=== PATIENT | male | born 1935 | race Caucasian/White ===

== ENCOUNTER 2018-12-10 06:23 | Inpatient (IN) | payer MEDICARE, BC ==
[2018-12-10 07:20] LABS: #Eosinphils 0.1 thou/uL (0.0-0.7); #Lymphocytes 0.5 thou/uL (1.20-3.40); #Neutrophils 6.4 thou/uL (1.40-6.50); %Basophils 0.1 % (0.0-1.0); %Eosinophils 0.9 % (0.0-10.0); %Lymphocytes 6.4 % (21.0-51.0); %Monocytes 12.2 % (0.0-10.0); %Neutrophils 80.6 % (42.0-75.0); Hemoglobin 11.9 g/dL (14.0-18.0); Mean Corpuscular HGB CONC 33.1 g/dL (32.0-36.0); Mean Corpuscular Hemoglobin 31.9 pg (27.0-31.0); Mean Corpuscular Volume 96.6 fL (78.0-98.0); Mean Platelet Volume 8.1 fL (7.4-10.4); Platelet Count 208 thou/uL (130-400); RBC Distribution Width 13.2 % (11.5-14.5); Red Blood Cell (RBC) Count 3.73 mill/uL (4.70-6.10); White Blood Cell (WBC) Count 7.9 thou/uL (4.8-10.8)
[2018-12-10 07:26] LABS: Bilirubin Negative (Negative); Blood, Urine Negative (Negative); Clarity CLEAR (Clear); Glucose, Urine (Dipstick) Negative (Negative); Leukocyte Small (Negative); Nitrite Negative (Negative); Protein, Urine (Dipstick) Negative (Neg-Trace); Specific Gravity, Urine 1.016 (1.002-1.036); Urobilinogen 0.2 mg/dL (0.2-1.0); pH, Urine 6.5 (5.0-9.0)
[2018-12-10 07:29] LABS: Bacteria/HPF None Seen HPF (None Seen); Hyaline Casts/LPF 0-3 HYALINE CAST LPF (0-3 Hyaline); RBC/HPF 0-3 HPF (0-3); Squamous Epithelial 0-3 HPF (0-3)
--- NOTE | 2018-12-10 07:40 | RAD ---
EXAM: Single view of the chest HISTORY: Fall with chest pain COMPARISON: 01/02/2014 FINDINGS: Single view of the chest shows a normal sized cardiomediastinal silhouette. Biapical pleura l thickening is seen. There is no evidence of consolidation, mass, or pleural effusion. The bones are unremarkable. IMPRESSION: No evidence of acute cardiopulmonary disease
[2018-12-10 07:43] LABS: ALT (SGPT) 16 U/L (8-55); AST (SGOT) 20 U/L (5-34); Alkaline Phosphatase 37 U/L (40-150); Anion Gap 11 mmol/L (10-20); BUN (Urea Nitrogen) 17 mg/dL (8.4-25.7); Bilirubin, Total 0.2 mg/dL (0.2-1.2); CK (CPK) 51 U/L (30-200); Calc. Creatinine Clearance 0 mL/min (70-130); Calcium 8.6 mg/dL (7.8-10.44); Carbon Dioxide 23 mmol/L (23-31); Chloride 112 mmol/L (98-107); Estimated GFR-MDRD Greater than 90; Globulin 2.4 g/dL (2.4-3.5); Glucose 102 mg/dL (83-110); Lipase 50 U/L (8-78); Potassium 3.7 mmol/L (3.5-5.1); Protein, Total 5.4 g/dL (5.8-8.1); Sodium 142 mmol/L (136-145)
[2018-12-10 08:00] LABS: Free T4 (Free Thyroxine) 0.86 ng/dL (0.70-1.48); Thyroid Stimulating Hormone 0.5577 uIU/mL (0.35-4.94)
--- NOTE | 2018-12-10 08:00 | RAD ---
EXAM: 2 views of the right forearm HISTORY: Forearm pain after fall COMPARISON: None FINDINGS: There is no evidence of acute fracture or dislocation. Mild diffuse soft tissue swelling is seen. No degenerative changes are seen in the wrist or elbow. IMPRESSION: No evidence of acute osseous abnormality.
--- NOTE | 2018-12-10 08:01 | RAD ---
Exam: Single view of the pelvis HISTORY: Pelvic and hip pain COMPARISON: None FINDINGS: A single view the pelvis shows irregularity along the left superior pubic ramus. This could be artifactual or represent a minimally displaced fracture. No other osseous abnormalities are seen in the bones of the pelvis. No degenerative changes seen in either hip. Moderate degenerative ch anges are seen in the lumbar spine. A catheter is seen in the urinary bladder. IMPRESSION: Questionable left superior pubic ramus fracture. A CT of the pelvis is recommended for fu rther evaluation.
--- NOTE | 2018-12-10 08:03 | CT ---
CT BRAIN WITHOUT CONTRAST: HISTORY: Head injury post fall. FINDINGS: There is some generalized ventricular and sulcal prominence. There are no signs of intracerebral hem orrhage or extraaxial fluid collection. No mass lesion or mass effect. There is a right frontal sca lp hematoma noted. No underlying fracture. The mastoid air cells are clear. There is mucosal disease within the ethmoid air cells. IMPRESSION: No acute intracranial abnormalities. POS: [facility]
[2018-12-10] MEDS ORDERED: cefTRIAXone\\ROCEPHIN 1 GM VIAL ONE (08:35)
[2018-12-10] MEDS ORDERED: Dextrose 50% Abboject 50 ML SYRINGE ONE (08:49)
--- NOTE | 2018-12-10 08:56 | CT ---
CT ABDOMEN AND PELVIS WITHOUT IV CONTRAST: Date: 12/10/18 INDICATION: Concern for history of fall; patient was found down with unwitnessed fall. There is concern for possi ble pelvic fracture. FINDINGS: Lung bases are clear. There is a small hiatal hernia. Unopacified liver, spleen, pancreas, and adrenal glands are unremarkable appearing. There are small gallstones within the gallbladder neck. There is a tiny cyst within the left kidney. No free fluid or enlarged lymph nodes are evident. There are moderate calcifications involving the abdominal aorta. There is scattered colonic diverticula. Small bowel is normal caliber. Prostate is enlarged, measuring 5.9 cm. There is a Garcia catheter in place. 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 There is diffuse osteopenia. No displaced pelvic fracture is evident. IMPRESSION: 1. No acute traumatic injury involving abdomen or pelvis. 2. No definite pelvic fracture demonstrated. 3. Cholelithiasis. 4. Left renal cyst. 5. Colonic diverticulosis. 6. Prostate enlargement. 7. 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 POS: [facility]
[2018-12-10] MEDS ORDERED: Zolpidem Tartrate 5 MG TAB PO PRN (09:02)
[2018-12-10] MEDS ORDERED: Dextrose 5% in Water 1,000 ML IV PRN (09:02)
[2018-12-10] MEDS ORDERED: Dextrose 50% Abboject 50 ML SYRINGE SLOW IVP PRN (09:02)
[2018-12-10] MEDS ORDERED: Ondansetron ODT 4 MG TAB PO PRN (09:02)
--- NOTE | 2018-12-10 10:26 | HP ---
[facility] Call Admission for [facility]. Referred to [facility] Hospitalist Service by [facility] for hypoglycemia and pneumonia. The patient was found on the floor about 4 o'clock to 5 o'clock this morning by his son. He was disoriented. He had no memory of how he got to the floor. His last memory is getting up to use his scooter. He is unable to ambulate due to weakness in his legs to go the bathroom. He notes he has chronic shortness of breath. No recent cough. No fever, no sweats, no chills. He was found to be hypothermic and was put on a Oliva Hugger, found to be hypoglycemic and treated with D5W. PAST MEDICAL HISTORY: Pertinent for severe COPD, diabetes mellitus type 2, benign prostatic hypertrophy with prostatism, elevated cholesterol. MEDICATIONS: The patient did not bring his medicines with him. I have reviewed a whole list with him. 1. He is currently on no insulin. 2. He takes Xanax 0.25 mg twice a day. 3. Metformin 500 mg twice a day. 4. Aspirin 325 a day. 5. Finasteride 5 mg a day. 6. Prednisone 10 mg a day. 7. He is unsure of his dose of Lasix. 8. He takes Crestor 40 mg a day. 9. Flomax 0.4 mg a day. 10. He has had a Symbicort inhaler 160/4.5 twice a day. 11. Combivent inhaler, unknown frequency. ALLERGIES: NO KNOWN DRUG ALLERGIES. PAST SURGICAL HISTORY: Appendectomy, tonsillectomy, left elbow fracture. FAMILY HISTORY: Mother and father both at 95. He had a sister who at 44 of cervical cancer. SOCIAL HISTORY: . Lives with his son, Troy King Junior, who is next of kin. He is full code. He quit smoking 15 years ago. Uses no alcohol or illicit drugs. REVIEW OF SYSTEMS: GENERAL: No headaches, dizziness, or fainting prior to this event. EYES: He has blurred vision. Uses glasses. No double vision or flashing lights. EAR, NOSE, AND THROAT: States that his nose runs clear fluid all the time. He sneezes a lot. No trouble swallowing. No ear pain or drainage. CARDIAC: No chest pain, orthopnea, or paroxysmal nocturnal dyspnea. RESPIRATIONS: Chronic dyspnea on exertion, chronic shortness of breath. No cough. He has frequent wheezes. Uses nebulizers and inhalers. GASTROINTESTINAL: No nausea, vomiting, abdominal pain, or diarrhea. GENITOURINARY: No hematuria or dysuria. MUSCULOSKELETAL: Profound weakness in his legs. Uses a scooter to get around. No pain or swelling in his legs. NEUROLOGICAL: No history of strokes, seizures, or focal weakness. SKIN: Bruises easily. HEME/LYMPH: No tender or swollen lymph nodes in the axilla, inguinal, or cervical area. PHYSICAL EXAMINATION: VITAL SIGNS: Blood pressure 141/78, pulse 86, respirations 28, temperature 97 now. He was apparently 89 when he was brought to the emergency room, which has been steadily increasing with a Oliva Hugger, O2 saturation is in the 90s on room air. HEENT: Examination of his head, eyes, ears, nose, and throat revealed pupils are equal, round, and reactive. Extraocular movements are intact. Sclerae are white. Tympanic membranes are clear. Nose is clear. Oral mucous membranes are dry. Multiple caries. NECK: No jugular venous distention, adenopathy, or thyromegaly. CHEST: Distant breath sounds, hyper-resonant, nonfocal. HEART: Regular rate and rhythm. First and second heart sounds are clear. No murmurs or gallops. ABDOMEN: Soft. Bowel sounds are normal. No hepatosplenomegaly. No masses. No rebound. EXTREMITIES: Reveal no cyanosis, clubbing, or edema. Pulses, carotid and radial pulses are symmetric. Femoral pulses diminished. Pedal pulses markedly diminished. SKIN: Warm and dry. He has multiple large ecchymoses on both arms and his significant skin avulsion on his right arm. HEME/LYMPH: No tender or swollen lymph nodes in the axilla, inguinal, or cervical area. NEUROLOGICAL: Cranial nerves 2 through 12. Deep tendon reflexes, symmetric. DIAGNOSTIC DATA: Brain CT reviewed by me, no acute intracranial abnormality. Chest x-ray, hyperinflation, air trapping, obvious bullous changes, no evidence of acute infiltrate or CHF. EKG, we will obtain, read when available. LABORATORY DATA: White count 7.9, hemoglobin 11.9, platelet count 208,000. Comprehensive metabolic profile, chloride 112, otherwise unremarkable. Cardiac enzymes, troponin is less than 0.01. TSH 0.56. Blood sugar 114, 85, 48. He is currently receiving D50. ADMITTING DIAGNOSES: Hypoglycemia, hypothermia, found down, diabetes mellitus type 2, chronic obstructive pulmonary disease, benign prostatic hypertrophy with prostatism, dyslipidemia. PLAN: Admit to medical on observation. Q.2 hours blood sugars. D10 IV for the current time until blood sugars are running approximately 200. Oliva Hugger until temperature is normal. Wound care for his right forearm. I have discussed care with him and his son. They are agreeable to current plans. Job ID: [id number]
[2018-12-10 10:44] VITALS: BMI 21.2
[2018-12-10] MEDS: Dextrose 10% in Water 1,000 ML IV SCH ×2 (13:02→23:55)
[2018-12-10] MEDS: Acetaminophen 325 MG TAB PO PRN (16:52)
[2018-12-11 06:43] LABS: Mean Corpuscular Volume 99.7 fL (78.0-98.0)
[2018-12-11 06:48] LABS: #Eosinphils 0.3 thou/uL (0.0-0.7); #Lymphocytes 0.7 thou/uL (1.20-3.40); #Monocytes 0.7 thou/uL (0.11-0.59); #Neutrophils 5.8 thou/uL (1.40-6.50); %Basophils 0.4 % (0.0-1.0); %Eosinophils 3.4 % (0.0-10.0); %Lymphocytes 9.6 % (21.0-51.0); %Monocytes 9.2 % (0.0-10.0); %Neutrophils 77.5 % (42.0-75.0); Mean Corpuscular Hemoglobin 31.9 pg (27.0-31.0); Mean Platelet Volume 8.2 fL (7.4-10.4); Platelet Count 224 thou/uL (130-400); RBC Distribution Width 13.7 % (11.5-14.5); Red Blood Cell (RBC) Count 4.07 mill/uL (4.70-6.10); White Blood Cell (WBC) Count 7.5 thou/uL (4.8-10.8)
[2018-12-11 06:56] LABS: Anion Gap 9 mmol/L (10-20); BUN (Urea Nitrogen) 9 mg/dL (8.4-25.7); Calc. Creatinine Clearance 60 mL/min (70-130); Calcium 8.8 mg/dL (7.8-10.44); Carbon Dioxide 28 mmol/L (23-31); Chloride 107 mmol/L (98-107); Estimated GFR-MDRD 84; Glucose 116 mg/dL (83-110); Potassium 3.6 mmol/L (3.5-5.1); Sodium 140 mmol/L (136-145)
[2018-12-11] MEDS: Dextrose 10% in Water 1,000 ML IV SCH (08:16)
[2018-12-11] MEDS ORDERED: ISOVUE-370 76%-LOCM 1 ML ONE (10:28)
[2018-12-11] MEDS ORDERED: ALPRAZolam 0.25 MG TAB PO PRN (17:14)
--- NOTE | 2018-12-11 17:23 | PDOC.PN ---
- Subjective Encounter Start Date: 12/11/18 Encounter Start Time: 17:20 Subjective: Patient resting in bed, sleeping but wakes easily and able to hold a -: conversation. Does not recall events prior to falling. Believed to have -: had hypoglycemic episode. Patient not eating/drinking due to low appetite. Denies any chest pain. Reports sob at baseline and wears oxygen due to COPD. Denies any recent cough or hemoptysis. Denies any fevers, chills or sweats. - Objective Resuscitation Status - Order Detail: 12/10/18 08:59 Resuscitation Status Routine Resuscitation Status: FULL: Full Resuscitation Vital Signs & Weight: Vital Signs (12 hours) Temp Pulse Resp BP BP Pulse Ox 12/11/18 16:39 97.9 F 109 H 20 130/84 96 12/11/18 12:00 98.6 F 110 H 20 119/70 99 12/11/18 11:58 111 H 18 96 12/11/18 08:15 98 F 112 H 18 124/68 95 12/11/18 08:08 98.0 F 112 H 18 124/68 95 12/11/18 06:47 97 16 95 Weight Admit Weight 140 lb 0.002 oz Weight 140 lb 0.002 oz I&O: 12/10/18 12/11/18 12/12/18 06:59 06:59 06:59 Intake Total 3153 Output Total 3150 Balance 3 Result Diagrams: 12/12/18 07:20 12/12/18 07:20 Additional Labs: Accuchecks 12/10/18 20:20 POC Glucose 75 Phys Exam - Physical Examination Constitutional: NAD HEENT: PERRLA, sclera anicteric, oral pharynx no lesions MMs dry Neck: supple Respiratory: clear to auscultation bilateral Cardiovascular: RRR Gastrointestinal: soft, non-tender, no distention Musculoskeletal: no edema Neurological: normal sensation, moves all 4 limbs power 5/5 in all limbs Psychiatric: A&O x 3 Deviation from normal: lethargic Skin: no rash Dx/Plan (1) Collapse Code(s): R55 - SYNCOPE AND COLLAPSE Status: Acute Plan: Attributed to hypoglycemic episode. Patient with improved glucose, refusing to eat due to low appetite. He is noted to be tachycardic. SOB at baseline, unable to assess if worse from baseline, as has been less active in recent days. Will check d-dimer, if positive will need CTA to rule out PE as a cause for collapse and tachycardia. (2) COPD (chronic obstructive pulmonary disease) Status: Chronic Plan: On O2 at baseline. (3) Diabetes mellitus Code(s): E11.9 - TYPE 2 DIABETES MELLITUS WITHOUT COMPLICATIONS Status: Chronic - Plan cont current plan of care Rehab screening. -: Patient for potential discharge to rehab. -: Monitor glucose. Normally on Metformin. Mild ISS. Check Hgb A1C. -: Would benefit from [facility] consult. -: Tachycardic. Have obtained D-dimer, elvated. CTA requested to rule out PE.
[2018-12-11] MEDS ORDERED: HumaLOG 300 UNITS/3 ML VIAL SC PRN ×2 (17:35)
[2018-12-11] MEDS: Mometasone/Formoterol 120 PUFF INHALER INH SCH (19:12)
[2018-12-11] MEDS: Rosuvastatin 20 MG TAB PO SCH (20:55)
[2018-12-11] MEDS: Finasteride 5 MG TAB PO SCH (20:55)
--- NOTE | 2018-12-11 21:02 | CT ---
EXAM: CT angiogram of the chest including 3-D rendering: HISTORY: Tachycardia and syncope COMPARISON: None FINDINGS: There is adequate opacification of the pulmonary arteries. No evidence for aortic aneurysm or dissection. No convincing CT evidence for acute pulmonary embolism. There are bilateral bullous emphysema changes particularly in the apices with some pleural thickening and some minimal pleural-based calcifications. These findings are consistent with chronic change. No evidence for mediastinal mass or adenopathy. No no evidence for pleural or pericardial effusion. Small hiatal hernia. IMPRESSION: No convincing CT evidence for acute pulmonary embolism. Chronic bullous emphysema changes and pleural thickening with some pleural calcification.
[2018-12-12] MEDS: Mometasone/Formoterol 120 PUFF INHALER INH SCH ×2 (07:41→19:03)
[2018-12-12 07:51] LABS: Anion Gap 12 mmol/L (10-20); BUN (Urea Nitrogen) 12 mg/dL (8.4-25.7); Calc. Creatinine Clearance 48 mL/min (70-130); Calcium 9.1 mg/dL (7.8-10.44); Carbon Dioxide 25 mmol/L (23-31); Chloride 106 mmol/L (98-107); Estimated GFR-MDRD 65; Glucose 125 mg/dL (83-110); Sodium 139 mmol/L (136-145)
[2018-12-12 08:36] LABS: Band 3 % (5-11); Eosinophils 4 % (0-10); Hemoglobin 13.1 g/dL (14.0-18.0); Lymphocytes 12 % (21-51); MDiff Complete? YES; Mean Corpuscular HGB CONC 32.4 g/dL (32.0-36.0); Mean Corpuscular Hemoglobin 31.3 pg (27.0-31.0); Mean Corpuscular Volume 96.6 fL (78.0-98.0); Mean Platelet Volume 8.3 fL (7.4-10.4); Monocytes 7 % (0-10); Neutrophil 72 % (42-75); Platelet Count 236 thou/uL (130-400); RBC Distribution Width 13.6 % (11.5-14.5); RBC Morphology Normal; Reactive Lymphocytes 2 % (0-10); Red Blood Cell (RBC) Count 4.19 mill/uL (4.70-6.10); White Blood Cell (WBC) Count 11.9 thou/uL (4.8-10.8)
[2018-12-12] MEDS: Acetaminophen 325 MG TAB PO PRN (12:17)
[2018-12-12] MEDS: cefTRIAXone\\ROCEPHIN 2 GM in Sodium Chloride 0.9% 100 ML IVPB SCH (13:27)
--- NOTE | 2018-12-12 15:42 | PDOC.PN ---
- Subjective Encounter Start Date: 12/12/18 Encounter Start Time: 11:39 Subjective: Patient without complaints but notably confused speech. -: Looking for computer mouse to control television. -: Son states he noted confusion this morning, and patient hallucinating. Patient remains afebrile. Denies any pain. No headache or dizziness. No n/v. No abdominal pain. Urine unremarkable. Per son last night he had swelling to left upper extremity, requiring wrist band to be cut off. Improved today but with erythema in antecubital region. No significant warmth. Pain with palpation however patient has tiny wounds from fall. No purulent discharge. Per son wound care came in today but did not change dressing. I have taken dressing down to assess for infection. - Objective Resuscitation Status - Order Detail: 12/10/18 08:59 Resuscitation Status Routine Resuscitation Status: FULL: Full Resuscitation Vital Signs & Weight: Vital Signs (12 hours) Temp Pulse Pulse Resp BP BP Pulse Ox 12/12/18 13:44 110 H 20 92 L 12/12/18 11:56 99.4 F 109 H 18 117/68 91 L 12/12/18 10:18 122 H 135/81 12/12/18 07:40 107 H 16 92 L 12/12/18 07:26 98.4 F 107 H 16 121/77 92 L 12/12/18 05:50 97.3 F L 118 H 16 115/74 92 L Pulse Ox 12/12/18 13:44 12/12/18 11:56 12/12/18 10:18 92 L 12/12/18 07:40 12/12/18 07:26 12/12/18 05:50 Weight Admit Weight 140 lb 0.002 oz Weight 140 lb 0.002 oz I&O: 12/11/18 12/12/18 12/13/18 06:59 06:59 06:59 Intake Total 3153 2260 Output Total 3150 1050 Balance 3 1210 Result Diagrams: 12/12/18 07:20 12/12/18 07:20 Additional Labs: Accuchecks 12/12/18 12/12/18 11:31 06:24 POC Glucose 165 H 129 H Phys Exam - Physical Examination Constitutional: NAD Patient resting comfortably. HEENT: PERRLA, oral pharynx no lesions Neck: no nodes, supple, full ROM Respiratory: clear to auscultation bilateral O2 in place. Cardiovascular: RRR Gastrointestinal: soft, non-tender Musculoskeletal: no edema Neurological: normal sensation, moves all 4 limbs Facial movements normal, sensation intact, EOM normal. Confused speech, able to answer questions appropriately and follow commands Psychiatric: normal affect Deviation from normal: Alert to person and place Deviation from normal: Left arm notable for edema/erythema in antecubital region -: large wound to right anterior forearm, painful, erythematous Dx/Plan (1) Collapse Code(s): R55 - SYNCOPE AND COLLAPSE Status: Acute (2) COPD (chronic obstructive pulmonary disease) Status: Chronic (3) Diabetes mellitus Code(s): E11.9 - TYPE 2 DIABETES MELLITUS WITHOUT COMPLICATIONS Status: Chronic - Plan continue antibiotics Patient with elevated WCC 11.9 today, continues to be tachy -: Large wound to right forearm and erythema/edema to left arm. -: Unable to safely discarge, will require 2 midnight stay. -: Started on IV Abx, BCx and lactic acid requested. -: Doppler to LUE. Rule out DVT given recent injury. Consult placed to Dr. Ji (general surgery), has advised to consult plastic surgery for skin graft, otherwise would require daily wound care. Patient discussed with Dr. Singh who agrees with plan as above.
[2018-12-12] MEDS: Dextrose 10% in Water 1,000 ML IV SCH (17:06)
[2018-12-12] MEDS: Finasteride 5 MG TAB PO SCH (20:05)
[2018-12-12] MEDS: Rosuvastatin 20 MG TAB PO SCH (20:05)
[2018-12-13] MEDS: Dextrose 10% in Water 1,000 ML IV SCH ×2 (03:03→07:52)
[2018-12-13] MEDS: Acetaminophen 325 MG TAB PO PRN (04:36)
[2018-12-13] MEDS: Mometasone/Formoterol 120 PUFF INHALER INH SCH ×2 (06:38→18:59)
[2018-12-13 07:29] LABS: #Eosinphils 0.4 thou/uL (0.0-0.7); #Lymphocytes 0.4 thou/uL (1.20-3.40); #Monocytes 0.6 thou/uL (0.11-0.59); #Neutrophils 8.8 thou/uL (1.40-6.50); %Eosinophils 3.6 % (0.0-10.0); %Lymphocytes 4.2 % (21.0-51.0); %Monocytes 5.7 % (0.0-10.0); %Neutrophils 86.6 % (42.0-75.0); Hemoglobin 12.6 g/dL (14.0-18.0); Mean Corpuscular HGB CONC 32.9 g/dL (32.0-36.0); Mean Corpuscular Hemoglobin 31.5 pg (27.0-31.0); Mean Corpuscular Volume 95.7 fL (78.0-98.0); Mean Platelet Volume 8.6 fL (7.4-10.4); Platelet Count 250 thou/uL (130-400); RBC Distribution Width 13.4 % (11.5-14.5); Red Blood Cell (RBC) Count 3.99 mill/uL (4.70-6.10); White Blood Cell (WBC) Count 10.2 thou/uL (4.8-10.8)
[2018-12-13 07:44] LABS: Anion Gap 12 mmol/L (10-20); BUN (Urea Nitrogen) 12 mg/dL (8.4-25.7); Calc. Creatinine Clearance 44 mL/min (70-130); Carbon Dioxide 23 mmol/L (23-31); Chloride 102 mmol/L (98-107); Estimated GFR-MDRD 60; Glucose 205 mg/dL (83-110); Potassium 3.9 mmol/L (3.5-5.1); Sodium 133 mmol/L (136-145)
--- NOTE | 2018-12-13 09:48 | PDOC.PN ---
- Subjective Encounter Start Date: 12/13/18 Encounter Start Time: 09:10 -: old records requested/rev Patient seen and examined. pt is disoriented, No overnight events - Objective Resuscitation Status - Order Detail: 12/10/18 08:59 Resuscitation Status Routine Resuscitation Status: FULL: Full Resuscitation MAR Reviewed: Yes Vital Signs & Weight: Vital Signs (12 hours) Temp Pulse Resp BP BP Pulse Ox 12/13/18 07:50 99.2 F 103 H 20 99/61 100 12/13/18 06:36 104 H 20 96 12/13/18 04:00 100.1 F H 110 H 20 140/82 100 12/13/18 03:26 116 H 18 100 12/13/18 00:51 111 H 16 93 L 12/13/18 00:00 98.6 F 111 H 20 127/75 94 L Weight Admit Weight 140 lb 0.002 oz Weight 140 lb 0.002 oz I&O: 12/12/18 12/13/18 12/14/18 06:59 06:59 06:59 Intake Total 2260 300 Output Total 1050 1750 Balance 1210 -1450 Result Diagrams: 12/13/18 06:15 12/13/18 06:15 Additional Labs: Accuchecks 12/13/18 12/13/18 12/12/18 04:26 00:21 20:19 POC Glucose 199 H 144 H 209 H 12/12/18 12/12/18 16:21 11:31 POC Glucose 121 H 165 H Phys Exam - Physical Examination Constitutional: NAD HEENT: PERRLA, moist MMs, sclera anicteric Neck: no JVD, supple Respiratory: no wheezing, no rales, no rhonchi Cardiovascular: RRR, no significant murmur, no rub Gastrointestinal: soft, non-tender, no distention, positive bowel sounds Musculoskeletal: no edema, pulses present Neurological: non-focal, normal sensation Lymphatic: no nodes Psychiatric: normal affect Skin: no rash, normal turgor Dx/Plan (1) Fall Code(s): W19.XXXA - UNSPECIFIED FALL, INITIAL ENCOUNTER Status: Acute (2) Hypoglycemia associated with type 2 diabetes mellitus Code(s): E11.649 - TYPE 2 DIABETES MELLITUS WITH HYPOGLYCEMIA WITHOUT COMA Status: Acute (3) BPH (benign prostatic hyperplasia) Code(s): N40.0 - BENIGN PROSTATIC HYPERPLASIA WITHOUT LOWER URINRY TRACT SYMP Status: Chronic (4) COPD (chronic obstructive pulmonary disease) Status: Chronic (5) Cholelithiases Code(s): K80.20 - CALCULUS OF GALLBLADDER W/O CHOLECYSTITIS W/O OBSTRUCTION Status: Chronic (6) Diabetes type 2, controlled Code(s): E11.9 - TYPE 2 DIABETES MELLITUS WITHOUT COMPLICATIONS Status: Chronic (7) Diverticulosis of colon Code(s): K57.30 - DVRTCLOS OF LG INT W/O PERFORATION OR ABSCESS W/O BLEEDING Status: Chronic (8) Dyslipidemia Code(s): E78.5 - HYPERLIPIDEMIA, UNSPECIFIED Status: Chronic (9) Osteonecrosis Code(s): M87.9 - OSTEONECROSIS, UNSPECIFIED Status: Chronic - Plan cont current plan of care, PT/OT, social welfare administrator * medication reviewed as below * symptomatic treatment * check B12, folate, RPR. * DC IVF * continue PT/OT Review of Systems - Review of Systems Other: not reliable due to his level of cognitive status - Medications/Allergies Allergies/Adverse Reactions: Allergies Allergy/AdvReac Type Severity Reaction Status Date / Time No Known Drug Allergies Allergy Verified 12/30/13 01:03 No Known Drug Intolerances Allergy Verified 12/10/18 14:19 Medications: Current Medications Acetaminophen (Tylenol) 650 mg PO Q4H PRN PRN Reason: Headache/Fever/Mild Pain (1-3) Last Admin: 12/13/18 04:36 Dose: 650 mg Albuterol/Ipratropium (Duoneb) 3 ml NEB [id number] J LUIS Last Admin: 12/13/18 06:36 Dose: 3 ml Alprazolam (Xanax) 0.25 mg PO Q8HR PRN PRN Reason: air hunger/anxiety Dextrose/Water (Dextrose 50%) 25 gm SLOW IVP PRN PRN PRN Reason: Hypoglycemia Finasteride (Proscar) 5 mg PO HS J LUIS Last Admin: 12/12/18 20:05 Dose: 5 mg Glucagon (Glucagon) 1 mg IM PRN PRN PRN Reason: Hypoglycemia Dextrose/Water (D5w) 1,000 mls @ 0 mls/hr IV .Q0M PRN PRN Reason: Hypoglycemia Ceftriaxone Sodium 2 gm/ (Sodium Chloride) 100 mls @ 200 mls/hr IVPB Q24HR [facility] Last Admin: 12/12/18 13:27 Dose: 100 mls Dextrose/Water (Dextrose 10% In Water) 1,000 mls @ 100 mls/hr IV .Q10H [facility] Last Admin: 12/13/18 07:52 Dose: 1,000 mls Insulin Human Lispro (Humalog) 0 units SC .MILD SLIDING SCALE PRN PRN Reason: Mild Correctional Scale Insulin Human Lispro (Humalog) 0 units SC .BEDTIME SLIDING SC PRN PRN Reason: Bedtime Correctional Scale Mineral Oil/White Petrolatum (Aquaphor 99 Gm) 0 gm TOP ASDIR PRN PRN Reason: Rash/Topical Irritation Last Admin: 12/12/18 22:43 Dose: 1 applic Mometasone Furoate/Formoterol Fumar (Dulera 200 Mcg/5 Mcg Inhaler) 2 puff INH BID-RT [facility] Last Admin: 12/13/18 06:38 Dose: 2 puff Ondansetron HCl (Zofran Odt) 4 mg PO Q6H PRN PRN Reason: Nausea/Vomiting Rosuvastatin Calcium (Crestor) 40 mg PO HS [facility] Last Admin: 12/12/18 20:05 Dose: 40 mg Sodium Chloride (Flush - Normal Saline) 10 ml IVF Q12HR [facility] Last Admin: 12/13/18 07:41 Dose: Not Given Sodium Chloride (Flush - Normal Saline) 10 ml IVF PRN PRN PRN Reason: Saline Flush Zolpidem Tartrate (Ambien) 5 mg PO HSPRN PRN PRN Reason: Insomnia
[2018-12-13] MEDS ORDERED: Senokot S 8.6-50 MG TAB PO PRN (09:50)
[2018-12-13] MEDS ORDERED: HYDROcodone/Acetaminophen 5/325 mg Tablet PO PRN (09:50)
[2018-12-13] MEDS ORDERED: Artificial Tears 18 DROP/0.9 ML EA EYE PRN (09:50)
[2018-12-13] MEDS ORDERED: Eucerin (Mineral Oil/Petrolatum,White) 30 gm Jar TOP PRN (09:50)
[2018-12-13] MEDS ORDERED: Loperamide HCl 2 MG CAP PO PRN (09:50)
[2018-12-13] MEDS ORDERED: Sodium Chloride 0.65% Nasal 44 ML BOT EA NARE PRN (09:50)
[2018-12-13] MEDS ORDERED: Loratadine 10 MG TAB PO PRN (09:50)
[2018-12-13] MEDS ORDERED: Ondansetron PF 4 MG/2 ML Vial IVP PRN (09:50)
[2018-12-13] MEDS ORDERED: hydrALAZINE 20 MG/ML VIAL SLOW IVP PRN (09:50)
[2018-12-13] MEDS ORDERED: Cepastat Lozenges 1 LOZ PO PRN (09:50)
[2018-12-13] MEDS ORDERED: Diabetic Tussin 200 MG/10 ML UDCUP PO PRN (09:50)
[2018-12-13 13:57] LABS: Syphilis Antibody Nonreactive (Nonreactive); Syphilis Antibody Index 0.07 S/CO (<1.00 Non-Reactive)
[2018-12-13] MEDS: cefTRIAXone\\ROCEPHIN 2 GM in Sodium Chloride 0.9% 100 ML IVPB SCH (14:09)
[2018-12-13 14:10] LABS: Folate (Folic Acid) 14.1 ng/mL (7.0-31.4)
[2018-12-13] MEDS ORDERED: Enoxaparin Sodium 40 MG/0.4 ML SYRINGE SC SCH (14:45)
[2018-12-13] MEDS: Sodium Chloride 0.9% 1,000 ML IV SCH (14:48)
[2018-12-13] MEDS ORDERED: Sodium Chloride 0.9% 1,000 ML IV SCH (15:00)
--- NOTE | 2018-12-13 17:50 | ULT ---
BILATERAL LOWER EXTREMITY VENOUS DOPPLER ULTRASOUND: HISTORY: Bilateral lower extremity pain and edema. TECHNIQUE: Marcus-scale ultrasound with color-flow and spectral Doppler imaging of the deep venous systems of the lower extremities was performed bilaterally. FINDINGS: There is good flow, compression, and augmentation noted in the deep veins of the lower extremities on either side, including the common femoral, femoral, deep femoral, popliteal, posterior tibial, and g reater saphenous veins. IMPRESSION: No evidence of deep venous thrombosis in either lower extremity. POS: [facility]
[2018-12-13] MEDS ORDERED: Tamsulosin HCl 0.4 MG CAP PO SCH (21:00)
[2018-12-13] MEDS: Rosuvastatin 20 MG TAB PO SCH (21:34)
[2018-12-13] MEDS: Finasteride 5 MG TAB PO SCH (21:34)
[2018-12-14] MEDS: Sodium Chloride 0.9% 1,000 ML IV SCH ×2 (02:01→11:41)
[2018-12-14] MEDS: Acetaminophen 325 MG TAB PO PRN (04:05)
[2018-12-14] MEDS: Mometasone/Formoterol 120 PUFF INHALER INH SCH (06:59)
[2018-12-14] MEDS ORDERED: predniSONE 5 MG TAB PO SCH (08:00)
[2018-12-14] MEDS ORDERED: Enoxaparin Sodium 40 MG/0.4 ML SYRINGE SC SCH (09:00)
--- NOTE | 2018-12-14 10:19 | PDOC.PN ---
- Subjective Encounter Start Date: 12/14/18 Encounter Start Time: 10:00 Patient seen and examined. No new complaints. No overnight events - Objective Resuscitation Status - Order Detail: 12/10/18 08:59 Resuscitation Status Routine Resuscitation Status: FULL: Full Resuscitation MAR Reviewed: Yes Vital Signs & Weight: Vital Signs (12 hours) Temp Pulse Resp BP Pulse Ox 12/14/18 07:33 98.1 F 103 H 16 108/66 98 12/14/18 07:00 86 18 96 12/14/18 06:59 105 H 18 96 12/14/18 06:35 99.5 F 12/14/18 04:00 100.8 F H 111 H 96 12/13/18 23:09 98 Weight Admit Weight 140 lb 0.002 oz Weight 140 lb 0.002 oz I&O: 12/13/18 12/14/18 12/15/18 06:59 06:59 06:59 Intake Total 300 3600 Output Total 1750 1150 Balance -1450 2450 Result Diagrams: 12/13/18 06:15 12/13/18 06:15 Additional Labs: Accuchecks 12/14/18 12/13/18 12/13/18 04:52 20:03 16:44 POC Glucose 133 H 144 H 176 H 12/13/18 11:14 POC Glucose 151 H Phys Exam - Physical Examination Constitutional: NAD HEENT: PERRLA, moist MMs, sclera anicteric Neck: no JVD, supple Respiratory: no wheezing, no rales, no rhonchi Cardiovascular: RRR, no significant murmur, no rub Gastrointestinal: soft, non-tender, no distention, positive bowel sounds Musculoskeletal: no edema, pulses present Neurological: non-focal, normal sensation Lymphatic: no nodes Psychiatric: normal affect, A&O x 3 Skin: no rash, normal turgor Dx/Plan (1) Fall Code(s): W19.XXXA - UNSPECIFIED FALL, INITIAL ENCOUNTER Status: Acute (2) Hypoglycemia associated with type 2 diabetes mellitus Code(s): E11.649 - TYPE 2 DIABETES MELLITUS WITH HYPOGLYCEMIA WITHOUT COMA Status: Acute (3) BPH (benign prostatic hyperplasia) Code(s): N40.0 - BENIGN PROSTATIC HYPERPLASIA WITHOUT LOWER URINRY TRACT SYMP Status: Chronic (4) COPD (chronic obstructive pulmonary disease) Status: Chronic (5) Cholelithiases Code(s): K80.20 - CALCULUS OF GALLBLADDER W/O CHOLECYSTITIS W/O OBSTRUCTION Status: Chronic (6) Diabetes type 2, controlled Code(s): E11.9 - TYPE 2 DIABETES MELLITUS WITHOUT COMPLICATIONS Status: Chronic (7) Diverticulosis of colon Code(s): K57.30 - DVRTCLOS OF LG INT W/O PERFORATION OR ABSCESS W/O BLEEDING Status: Chronic (8) Dyslipidemia Code(s): E78.5 - HYPERLIPIDEMIA, UNSPECIFIED Status: Chronic (9) Osteonecrosis Code(s): M87.9 - OSTEONECROSIS, UNSPECIFIED Status: Chronic - Plan cont current plan of care, continue antibiotics, PT/OT, social services specialist * medication reviewed as below * symptomatic treatment * pt is more oriented today and stable * will need SNU placement. * continue rocephin, omnicef on discharge Review of Systems - Review of Systems ENT: negative: Ear Pain, Ear Discharge, Nose Pain, Nose Discharge, Nose Congestion, Mouth Pain, Mouth Swelling, Throat Pain, Throat Swelling, Other Respiratory: negative: Cough, Dry, Shortness of Breath, Hemoptysis, SOB with Excertion, Pleuritic Pain, Sputum, Wheezing Cardiovascular: negative: chest pain, palpitations, orthopnea, paroxysmal nocturnal dyspnea, edema, light headedness, other Gastrointestinal: negative: Nausea, Vomiting, Abdominal Pain, Diarrhea, Constipation, Melena, Hematochezia, Other Genitourinary: negative: Dysuria, Frequency, Incontinence, Hematuria, Retention , Other Musculoskeletal: negative: Neck Pain, Shoulder Pain, Arm Pain, Back Pain, Hand Pain, Leg Pain, Foot Pain, Other - Medications/Allergies Allergies/Adverse Reactions: Allergies Allergy/AdvReac Type Severity Reaction Status Date / Time melon Allergy Verified 12/13/18 13:48 No Known Drug Allergies Allergy Verified 12/30/13 01:03 No Known Drug Intolerances Allergy Verified 12/10/18 14:19 Medications: Current Medications Acetaminophen (Tylenol) 650 mg PO Q4H PRN PRN Reason: Headache/Fever/Mild Pain (1-3) Last Admin: 12/14/18 04:05 Dose: 650 mg Hydrocodone Bitart/Acetaminophen ([place] 5/325) 1 tab PO Q4H PRN PRN Reason: Moderate Pain (4-6) Albuterol/Ipratropium (Duoneb) 3 ml NEB [id number] [facility] Last Admin: 12/14/18 07:00 Dose: 3 ml Alprazolam (Xanax) 0.25 mg PO Q8HR PRN PRN Reason: air hunger/anxiety Artificial Tears (Tears Naturale) 2 drop EA EYE PRN PRN PRN Reason: Dry Eyes Cholecalciferol (Vitamin D3) 2,000 units PO DAILY [facility] Last Admin: 12/14/18 07:49 Dose: 2,000 units Dextrose/Water (Dextrose 50%) 25 gm SLOW IVP PRN PRN PRN Reason: Hypoglycemia Enoxaparin Sodium (Lovenox) 40 mg SC 0900 [facility] Last Admin: 12/14/18 07:49 Dose: 40 mg Finasteride (Proscar) 5 mg PO HS [facility] Last Admin: 12/13/18 21:34 Dose: 5 mg Glucagon (Glucagon) 1 mg IM PRN PRN PRN Reason: Hypoglycemia Guaifenesin (Robitussin Sf) 200 mg PO Q4H PRN PRN Reason: Cough Hydralazine HCl (Apresoline) 10 mg SLOW IVP Q4H PRN PRN Reason: SBP > 180 and HR < 70 Dextrose/Water (D5w) 1,000 mls @ 0 mls/hr IV .Q0M PRN PRN Reason: Hypoglycemia Ceftriaxone Sodium 2 gm/ (Sodium Chloride) 100 mls @ 200 mls/hr IVPB Q24HR [facility] Last Admin: 12/13/18 14:09 Dose: 100 mls Sodium Chloride (Normal Saline 0.9%) 1,000 mls @ 100 mls/hr IV .Q10H [facility] Last Admin: 12/14/18 02:01 Dose: 1,000 mls Insulin Human Lispro (Humalog) 0 units SC .MILD SLIDING SCALE PRN PRN Reason: Mild Correctional Scale Insulin Human Lispro (Humalog) 0 units SC .BEDTIME SLIDING SC PRN PRN Reason: Bedtime Correctional Scale Loperamide HCl (Imodium) 2 mg PO PRN PRN PRN Reason: Diarrhea/Loose Stools Loratadine (Claritin) 10 mg PO DAILYPRN PRN PRN Reason: Sinus Symptoms Mineral Oil/White Petrolatum (Aquaphor 99 Gm) 0 gm TOP ASDIR PRN PRN Reason: Rash/Topical Irritation Last Admin: 12/13/18 21:36 Dose: 1 applic Mineral Oil/White Petrolatum (Eucerin Cream) 0 gm TOP BIDPRN PRN PRN Reason: Dry Skin Mometasone Furoate/Formoterol Fumar (Dulera 200 Mcg/5 Mcg Inhaler) 2 puff INH BID-RT [facility] Last Admin: 12/14/18 06:59 Dose: 2 puff Ondansetron HCl (Zofran Odt) 4 mg PO Q6H PRN PRN Reason: Nausea/Vomiting Ondansetron HCl (Zofran) 4 mg IVP Q6H PRN PRN Reason: Nausea/Vomiting Prednisone (Prednisone) 5 mg PO QAM[facility] Last Admin: 12/14/18 07:49 Dose: 5 mg Rosuvastatin Calcium (Crestor) 40 mg PO [facility] Last Admin: 12/13/18 21:34 Dose: 40 mg Senna/Docusate Sodium (Senokot S) 2 tab PO BID PRN PRN Reason: Constipation Sodium Chloride (Flush - Normal Saline) 10 ml IVF Q12HR [facility] Last Admin: 12/14/18 07:49 Dose: Not Given Sodium Chloride (Flush - Normal Saline) 10 ml IVF PRN PRN PRN Reason: Saline Flush Sodium Chloride ([place] Nasal [place] 0.65%) 0 ml EA NARE QIDPRN PRN PRN Reason: Nasal Congestion Tamsulosin HCl (Flomax) 0.4 mg PO [facility] Last Admin: 12/13/18 21:34 Dose: 0.4 mg Throat Lozenges (Cepastat Lozenges) 1 mony PO Q2H PRN PRN Reason: Sore Throat
[2018-12-14] MEDS: cefTRIAXone\\ROCEPHIN 2 GM in Sodium Chloride 0.9% 100 ML IVPB SCH (13:02)
--- NOTE | 2018-12-14 13:15 | DIS ---
DATE OF ADMISSION: 12/12/2018 DATE OF DISCHARGE: 12/14/2018 PRIMARY CARE PHYSICIAN: Dr. Betancourt. DISCHARGE DISPOSITION: Rehab. PRIMARY DISCHARGE DIAGNOSES: 1. Acute metabolic encephalopathy due to hypoglycemia. 2. Frequent fall. 3. Physical deconditioning. SECONDARY DISCHARGE DIAGNOSES: 1. Benign enlargement of prostate. 2. Cholelithiasis. 3. Diabetes type 2. 4. Chronic obstructive pulmonary disease. 5. Diverticulosis. 6. Dyslipidemia. 7. Osteonecrosis. PRIMARY PROCEDURE/OPERATION: None. RADIOLOGICAL INVESTIGATION: Chest x-ray, CT brain, forearm x-ray, pelvis x-ray, abdomen and pelvis CT scan, CT angiography, ultrasound lower extremity. SIGNIFICANT LABORATORY DATA: Hemoglobin 12.6, creatinine 1.1. Blood culture negative. DISCHARGE MEDICATION: 1. DuoNeb q.6 hourly p.r.n. 2. Xanax 0.25 mg p.o. q.8 hourly p.r.n. 3. Albuterol inhaler q.2 hourly p.r.n. 4. Symbicort 2 puffs inhalation b.i.d. 5. Vitamin D3 2000 units p.o. daily. 6. Proscar 5 mg daily. 7. Flomax 0.4 mg at bedtime. 8. Crestor 40 mg p.o. at bedtime. 9. Prednisone 5 mg daily. 10. Multivitamin one tablet p.o. daily. 11. Omnicef 300 mg twice daily for 5 days. CONTRAINDICATION: None. CODE STATUS: Full code. INPATIENT WOOD BUFFER: None. ALLERGIES: NO KNOWN DRUG ALLERGIES. DISCHARGE PLAN: Posthospital, the patient discharged to rehab. Subsequently, the patient will follow up with primary care physician. HOSPITAL COURSE: An 83-year-old male, who was admitted by Dr. Singh. Please see his H and P for further details. The patient had fall and he was altered on admission. He was hypoglycemic. He had a trauma workup in the emergency room, which was negative. His hypoglycemia related altered mental status improved with dextrose solution. He also had urinary tract infection, which was treated with Rocephin while in hospital. On discharge, we changed to Omnicef. This patient's mental status improved to normal. He is doing much better. He had laceration after fall and that is why, he will require wound care. He is medically stable for discharge. I have seen and examined, and plan of care discussed with the patient and his son. The patient is stable for discharge today. Job ID: [id number]
[2018-12-14 16:29] VITALS: BP 121/63; TEMP 98.9
[2018-12-14] MEDS ORDERED: Mag-Al 1200 mg/1200 mg/30 ML UDCUP PO SCH (18:30)
== END 2018-12-14 18:40 | DRG 637 ==
LOC: ERS 06:23 → T4-B 10:09 → OBSVTOIN 12-12 13:08
PROVIDERS: ADMIT Internal Medicine; ATTEND Internal Medicine
DX: E11.649 Type 2 diabetes mellitus with hypoglycemia without coma (principal); G93.41 Metabolic encephalopathy; M87.9 Osteonecrosis, unspecified; N39.0 Urinary tract infection, site not specified; J44.9 Chronic obstructive pulmonary disease, unspecified; N40.0 Benign prostatic hyperplasia without lower urinary tract symptoms; E78.5 Hyperlipidemia, unspecified; T68.XXXA Hypothermia, initial encounter; R29.6 Repeated falls; K57.90 Diverticulosis of intestine, part unspecified, without perforation or abscess without bleeding; K80.20 Calculus of gallbladder without cholecystitis without obstruction; R55 Syncope and collapse; Z79.82 Long term (current) use of aspirin; Z79.84 Long term (current) use of oral hypoglycemic drugs; Z87.891 Personal history of nicotine dependence
CPT/HCPCS: 36415; 36416; 51702; 70450; 71045; 71275; 72170; 74176; 80048; 80053; 81003; 81015; 82550; 82607; 82746; 83605; 83690; 83735; 84439; 84443; 84484; 85025; 85379; 86780; 87040; 87086; 93005; 93010; 93970; 94640; 96361; 96365; 96375; J0696; J1650; J3490; J7512; J7620; Q0162; Q9966

== ENCOUNTER 2020-05-25 09:28 | Emergency (ER) | payer MEDICARE, BC ==
[2020-05-25 10:39] LABS: #Basophils 0.1 thou/uL (0.0-0.2); #Eosinphils 0.3 thou/uL (0.0-0.7); #Lymphocytes 1.2 thou/uL (1.20-3.40); #Monocytes 1.1 thou/uL (0.11-0.59); #Neutrophils 8.4 thou/uL (1.40-6.50); %Basophils 0.6 % (0.0-1.0); %Eosinophils 2.5 % (0.0-10.0); %Lymphocytes 11.2 % (21.0-51.0); %Monocytes 9.9 % (0.0-10.0); %Neutrophils 75.9 % (42.0-75.0); Hemoglobin 12.3 g/dL (14.0-18.0); Mean Corpuscular HGB CONC 31.3 g/dL (32.0-36.0); Mean Corpuscular Hemoglobin 32.5 pg (27.0-31.0); Mean Platelet Volume 8.4 fL (7.4-10.4); Platelet Count 217 thou/uL (130-400); RBC Distribution Width 12.9 % (11.5-14.5); Red Blood Cell (RBC) Count 3.78 mill/uL (4.70-6.10)
[2020-05-25 10:52] LABS: ALT (SGPT) 18 U/L (8-55); AST (SGOT) 21 U/L (5-34); Albumin 4.1 g/dL (3.4-4.8); Alkaline Phosphatase 57 U/L (40-110); Anion Gap 13 mmol/L (10-20); BUN (Urea Nitrogen) 17 mg/dL (8.4-25.7); Bilirubin, Total 0.5 mg/dL (0.2-1.2); Calc. Creatinine Clearance 0 mL/min (70-130); Calcium 9.6 mg/dL (7.8-10.44); Carbon Dioxide 36 mmol/L (23-31); Chloride 96 mmol/L (98-107); Estimated GFR-MDRD 58; Globulin 3.2 g/dL (2.4-3.5); Glucose 133 mg/dL (83-110); Potassium 3.6 mmol/L (3.5-5.1); Protein, Total 7.3 g/dL (5.8-8.1); Sodium 141 mmol/L (136-145)
[2020-05-25 11:27] LABS: Bilirubin Negative (Negative); Blood, Urine Large (Negative); Glucose, Urine (Dipstick) Negative (Negative); Ketone, Urine Trace mg/dL (Negative); Leukocyte Moderate (Negative); Nitrite Negative (Negative); Protein, Urine (Dipstick) 30 mg/dL (Neg-Trace); Specific Gravity, Urine 1.025 (1.005-1.030); Urobilinogen 0.2 mg/dL (Less than 2)
[2020-05-25 11:38] LABS: Clarity Cloudy (Clear)
[2020-05-25 11:39] LABS: Bacteria/HPF 1+ HPF (None Seen); Squamous Epithelial 0-3 HPF (0-3); WBC/HPF Greater Than 50 HPF (0-3)
[2020-05-25] MEDS ORDERED: cefTRIAXone\\ROCEPHIN 1 GM VIAL ONE (12:10)
== END 2020-05-25 12:43 | disposition home or self-care (01) ==
LOC: ERS 09:28
DX: N30.01 Acute cystitis with hematuria (principal); E11.9 Type 2 diabetes mellitus without complications; J44.9 Chronic obstructive pulmonary disease, unspecified; F41.9 Anxiety disorder, unspecified; Z87.891 Personal history of nicotine dependence; Z79.899 Other long term (current) drug therapy; Z79.82 Long term (current) use of aspirin
CPT/HCPCS: 36415; 51701; 80053; 81003; 81015; 85025; 87040; 87077; 87086; 87186; 96365; J0696

== ENCOUNTER 2021-08-10 13:30 | Inpatient (IN) | payer MEDICARE, BC ==
[2021-08-10 14:10] LABS: Hemoglobin 10.3 g/dL (14.0-18.0); Mean Corpuscular HGB CONC 32.8 g/dL (32.0-36.0); Mean Corpuscular Hemoglobin 33.6 pg (27.0-31.0); Mean Platelet Volume 8.3 fL (7.4-10.4); Platelet Count 214 thou/uL (130-400); RBC Distribution Width 13.5 % (11.5-14.5); Red Blood Cell (RBC) Count 3.07 mill/uL (4.70-6.10); White Blood Cell (WBC) Count 21.4 thou/uL (4.8-10.8)
[2021-08-10 14:35] LABS: ALT (SGPT) 36 U/L (8-55); AST (SGOT) 41 U/L (5-34); Albumin 3.1 g/dL (3.4-4.8); Alkaline Phosphatase 71 U/L (40-110); Anion Gap 11 mmol/L (10-20); BUN (Urea Nitrogen) 53 mg/dL (8.4-25.7); Bilirubin, Total 0.6 mg/dL (0.2-1.2); CK (CPK) 231 U/L (30-200); Calc. Creatinine Clearance 0 mL/min (70-130); Calcium 9.2 mg/dL (7.8-10.44); Carbon Dioxide 34 mmol/L (23-31); Chloride 99 mmol/L (98-107); Globulin 2.9 g/dL (2.4-3.5); Glucose 144 mg/dL (83-110); Potassium 5.3 mmol/L (3.5-5.1); Sodium 139 mmol/L (136-145)
[2021-08-10 14:44] LABS: Band 16 % (5-11); Lymphocytes 2 % (21-51); MDiff Complete? YES; Macrocytosis SLIGHT = 6-15 cells (100X) (0-5/hpf); Monocytes 6 % (0-10); Neutrophil 76 % (42-75); Platelet Morphology Comment Appears Adequate; Polychromasia SLIGHT = 2-3 cells (100X) (0-2/hpf)
[2021-08-10 15:18] LABS: CKMB 1.6 ng/mL (0-6.6)
[2021-08-10] MEDS ORDERED: cefTRIAXone\\ROCEPHIN 1 GM VIAL ONE (18:24)
[2021-08-10 19:57] LABS: Troponin I 0.028 ng/mL (< 0.028)
[2021-08-10 20:25] LABS: Bilirubin Negative (Negative); Blood, Urine 3+ (Negative); Clarity Turbid (Clear); Glucose, Urine (Dipstick) Normal (Negative); Ketone, Urine Negative (Negative); Leukocyte 25 Leu/uL (Negative); Nitrite 2+ (Negative); Protein, Urine (Dipstick) 20 mg/dL (Neg-Trace); RBC/HPF 21-50 HPF (0-3); Specific Gravity, Urine 1.011 (1.002-1.036); Squamous Epithelial None Seen HPF (0-3); Urobilinogen Normal mg/dL (Less than 2); pH, Urine 7.5 (5.0-9.0)
[2021-08-10 20:30] LABS: Bacteria/HPF 1+ HPF (None Seen)
[2021-08-10 21:19] VITALS: BMI 18.7
[2021-08-10 23:28] LABS: Troponin I 0.027 ng/mL (< 0.028)
[2021-08-11] MEDS ORDERED: Ondansetron PF 4 MG/2 ML Vial IVP PRN (00:38)
[2021-08-11 00:44] LABS: SARS-CoV-2 PCR by NAA Not Detected (NotDetected)
[2021-08-11 02:10] LABS: Hemoglobin 9.5 g/dL (14.0-18.0); Mean Corpuscular HGB CONC 33.1 g/dL (32.0-36.0); Mean Corpuscular Hemoglobin 33.9 pg (27.0-31.0); Mean Platelet Volume 8.6 fL (7.4-10.4); Platelet Count 198 thou/uL (130-400); RBC Distribution Width 13.8 % (11.5-14.5); Red Blood Cell (RBC) Count 2.79 mill/uL (4.70-6.10); White Blood Cell (WBC) Count 16.2 thou/uL (4.8-10.8)
[2021-08-11] MEDS: Sodium Chloride 0.9% 1,000 ML IV SCH ×2 (02:14→15:17)
[2021-08-11] MEDS: Cefepime 1 GM in Sodium Chloride 0.9% 100 ML IVPB SCH ×2 (02:15→12:50)
[2021-08-11 02:33] LABS: Anion Gap 10 mmol/L (10-20); BUN (Urea Nitrogen) 51 mg/dL (8.4-25.7); Calc. Creatinine Clearance 18 mL/min (70-130); Calcium 8.9 mg/dL (7.8-10.44); Carbon Dioxide 32 mmol/L (23-31); Chloride 103 mmol/L (98-107); Glucose 95 mg/dL (83-110); Potassium 4.4 mmol/L (3.5-5.1); Sodium 141 mmol/L (136-145)
[2021-08-11 02:51] LABS: Band 11 % (5-11); Elliptocytes SLIGHT = 2-5 cells (100X) (0-1/hpf); Lymphocytes 3 % (21-51); MDiff Complete? YES; Macrocytosis MODERATE=16-30 cells (100X) (0-5/hpf); Monocytes 5 % (0-10); Neutrophil 81 % (42-75); Platelet Morphology Comment Appears Adequate
[2021-08-11] MEDS: Enoxaparin Sodium 30 MG/0.3 ML SYRINGE SC SCH (08:36)
[2021-08-11] MEDS: Acetaminophen 325 MG TAB PO PRN (15:53)
[2021-08-11] MEDS: Rosuvastatin 10 MG TAB PO SCH (21:03)
[2021-08-11] MEDS: Tamsulosin HCl 0.4 MG CAP PO SCH (21:03)
[2021-08-11] MEDS: Finasteride 5 MG TAB PO SCH (21:03)
[2021-08-12] MEDS: Cefepime 1 GM in Sodium Chloride 0.9% 100 ML IVPB SCH ×2 (00:18→12:31)
[2021-08-12] MEDS: Sodium Chloride 0.9% 1,000 ML IV SCH (00:20)
[2021-08-12 07:51] LABS: #Lymphocytes 0.3 thou/uL (1.20-3.40); #Monocytes 0.4 thou/uL (0.11-0.59); #Neutrophils 5.9 thou/uL (1.40-6.50); %Basophils 0.1 % (0.0-1.0); %Eosinophils 0.5 % (0.0-10.0); %Lymphocytes 4.6 % (21.0-51.0); %Monocytes 6.1 % (0.0-10.0); %Neutrophils 88.8 % (42.0-75.0); Mean Corpuscular HGB CONC 31.9 g/dL (32.0-36.0); Mean Corpuscular Hemoglobin 33.1 pg (27.0-31.0); Mean Platelet Volume 8.6 fL (7.4-10.4); Platelet Count 171 thou/uL (130-400); RBC Distribution Width 13.7 % (11.5-14.5); Red Blood Cell (RBC) Count 3.04 mill/uL (4.70-6.10); White Blood Cell (WBC) Count 6.6 thou/uL (4.8-10.8)
[2021-08-12] MEDS: predniSONE 5 MG TAB PO SCH (08:16)
[2021-08-12] MEDS: Multivitamin W/ Minerals 1 TAB PO SCH (08:16)
[2021-08-12] MEDS: Enoxaparin Sodium 30 MG/0.3 ML SYRINGE SC SCH (08:16)
[2021-08-12] MEDS: Tamsulosin HCl 0.4 MG CAP PO SCH ×2 (08:16→20:34)
[2021-08-12 08:39] LABS: Anion Gap 14 mmol/L (10-20); Calcium 8.8 mg/dL (7.8-10.44); Carbon Dioxide 27 mmol/L (23-31); Chloride 113 mmol/L (98-107); Glucose 120 mg/dL (83-110); Potassium 3.8 mmol/L (3.5-5.1); Sodium 150 mmol/L (136-145)
[2021-08-12 08:46] LABS: BUN (Urea Nitrogen) 48 mg/dL (8.4-25.7); Calc. Creatinine Clearance 22 mL/min (70-130)
[2021-08-12] MEDS: Dextrose 5% in Water 1,000 ML IV SCH (10:47)
[2021-08-12] MEDS: Acetaminophen 325 MG TAB PO PRN (16:46)
[2021-08-12] MEDS: Rosuvastatin 10 MG TAB PO SCH (20:33)
[2021-08-12] MEDS: Cipro 250 MG TAB PO SCH (20:33)
[2021-08-12] MEDS: Finasteride 5 MG TAB PO SCH (20:34)
[2021-08-13] MEDS: Acetaminophen 325 MG TAB PO PRN (02:42)
[2021-08-13] MEDS: Dextrose 5% in Water 1,000 ML IV SCH ×2 (02:42→13:32)
[2021-08-13] MEDS: Cipro 250 MG TAB PO SCH (06:33)
[2021-08-13 07:12] LABS: #Eosinphils 0.3 thou/uL (0.0-0.7); #Lymphocytes 0.4 thou/uL (1.20-3.40); #Monocytes 0.6 thou/uL (0.11-0.59); #Neutrophils 6.4 thou/uL (1.40-6.50); %Eosinophils 4.1 % (0.0-10.0); %Lymphocytes 4.7 % (21.0-51.0); %Monocytes 7.7 % (0.0-10.0); %Neutrophils 83.4 % (42.0-75.0); Hemoglobin 8.7 g/dL (14.0-18.0); Mean Corpuscular HGB CONC 31.7 g/dL (32.0-36.0); Mean Corpuscular Hemoglobin 32.7 pg (27.0-31.0); Mean Platelet Volume 8.3 fL (7.4-10.4); Platelet Count 161 thou/uL (130-400); RBC Distribution Width 13.5 % (11.5-14.5); Red Blood Cell (RBC) Count 2.65 mill/uL (4.70-6.10); White Blood Cell (WBC) Count 7.6 thou/uL (4.8-10.8)
[2021-08-13 07:30] LABS: Anion Gap 6 mmol/L (10-20); BUN (Urea Nitrogen) 42 mg/dL (8.4-25.7); Calc. Creatinine Clearance 21 mL/min (70-130); Calcium 8.5 mg/dL (7.8-10.44); Carbon Dioxide 35 mmol/L (23-31); Chloride 110 mmol/L (98-107); Glucose 154 mg/dL (83-110); Potassium 3.1 mmol/L (3.5-5.1); Sodium 148 mmol/L (136-145)
[2021-08-13] MEDS ORDERED: Pantoprazole 40 MG GRANULES PACKET PO SCH (09:00)
[2021-08-13] MEDS: Enoxaparin Sodium 30 MG/0.3 ML SYRINGE SC SCH (09:49)
[2021-08-13] MEDS: Multivitamin W/ Minerals 1 TAB PO SCH (09:50)
[2021-08-13] MEDS: Tamsulosin HCl 0.4 MG CAP PO SCH (09:50)
[2021-08-13] MEDS: predniSONE 5 MG TAB PO SCH (09:51)
[2021-08-13 11:38] VITALS: TEMP 98.2
[2021-08-13] MEDS ORDERED: Potassium Chloride 20 MEQ TAB PO SCH (14:15)
[2021-08-13 17:13] VITALS: BP 99/63
== END 2021-08-13 17:21 | disposition hospice, home (50) | DRG 177 ==
LOC: ERS 13:30 → T4-A 19:14
PROVIDERS: ADMIT Family Medicine; ATTEND Internal Medicine
DX: J69.0 Pneumonitis due to inhalation of food and vomit (principal); J96.21 Acute and chronic respiratory failure with hypoxia; N17.9 Acute kidney failure, unspecified; N39.0 Urinary tract infection, site not specified; E44.0 Moderate protein-calorie malnutrition; Z68.1 Body mass index [BMI] 19.9 or less, adult; Z20.822 Contact with and (suspected) exposure to COVID-19; D64.9 Anemia, unspecified; N40.0 Benign prostatic hyperplasia without lower urinary tract symptoms; E87.5 Hyperkalemia; R31.9 Hematuria, unspecified; N18.30 Chronic kidney disease, stage 3 unspecified; E11.22 Type 2 diabetes mellitus with diabetic chronic kidney disease; F32.A Depression, unspecified; E78.5 Hyperlipidemia, unspecified; R79.89 Other specified abnormal findings of blood chemistry; R91.1 Solitary pulmonary nodule; E86.0 Dehydration; Z99.81 Dependence on supplemental oxygen; Z79.51 Long term (current) use of inhaled steroids; Z79.52 Long term (current) use of systemic steroids; Z79.899 Other long term (current) drug therapy; Z90.49 Acquired absence of other specified parts of digestive tract; Z87.891 Personal history of nicotine dependence; Z88.0 Allergy status to penicillin; Z91.018 Allergy to other foods; Z80.0 Family history of malignant neoplasm of digestive organs; J43.9 Emphysema, unspecified
CPT/HCPCS: 36415; 51701; 71045; 71250; 74176; 80048; 80053; 81003; 81015; 82550; 82553; 84484; 85025; 87040; 87086; 93005; 94640; 96365; 96366; J0692; J0696; J1650; J3490; J7050; J7070; J7512; J7620; U0003; U0005